=== PATIENT | female | born 1935 | race Caucasian/White ===

== ENCOUNTER → 2023-04-23 10:39 | Outpatient (REF) | payer MEDICARE, SELFPAY ==
[2023-04-23 11:54] LABS: % Basophils 0.6 % (0-2); % Eosinophils 3.6 % (0-6); % Immature Granulocytes 0.7 % (0-0.5); % Lymphocytes 43.7 % (20.5-51.1); % Monocytes 8.4 % (1.7-9.3); Absolute Eosinophils 0.3 10^3/uL (0-0.7); Absolute Immature Granulocytes 0.1 10^3/uL (0-0.05); Absolute Lymphocytes 3.2 10^3/uL (1.2-3.4); Absolute Monocytes 0.6 10^3/uL (0.1-0.6); Absolute Neutrophils 3.1 10^3/uL (1.4-6.5); Hematocrit 40.2 % (37.0-47.0); Hemoglobin 13.8 g/dL (12.0-16.0); Mean Corp Hgb Conc. 34.3 g/dL (33.0-37.0); Mean Corpuscular Hgb 32.9 pg (27.0-31.0); Mean Corpuscular Volume 95.7 fL (81.0-99.0); Mean Platelet Volume 8.5 fL (7.4-10.4); Nucleated Red Blood Cells % 0 %; Platelet Count 267 10^3/uL (130-400); Red Cell Dist. Width 15.2 % (11.5-14.5); White Blood Cell Count 7.3 10^3/uL (4.8-10.8)
[2023-04-23 12:30] LABS: ALT (SGPT) 20 U/L (0-35); AST (SGOT) 26 U/L (14-36); Albumin 4.6 g/dl (3.5-5.0); Alkaline Phosphatase 72 U/L (38-126); Blood Urea Nitrogen 17 mg/dl (7-17); Calcium 9.9 mg/dl (8.4-10.2); Carbon Dioxide 28 mmol/L (22-30); Chloride 104 mmol/L (98-107); Glucose 85 mg/dl (70-99); Potassium 3.8 mmol/L (3.5-5.1); Sodium 138 mmol/L (135-145); Total Bilirubin 0.8 mg/dl (0.2-1.3); Total Protein 6.9 g/dl (6.3-8.2); eGFR > 60.00
[2023-04-23 13:00] LABS: TSH Reflex To Free T4 6.65 uIU/ml (0.47-4.68)
[2023-04-23 13:48] LABS: Free T4 1.33 ng/dl (0.78-2.19)
== END ==
LOC: RAD 10:39
PROVIDERS: ATTENDING PHYSICIAN Internal Medicine
DX: M25.521 Pain in right elbow (principal); D75.1 Secondary polycythemia; E03.9 Hypothyroidism, unspecified; I10 Essential (primary) hypertension
CPT/HCPCS: 36415; 73080; 80053; 84439; 84443; 85025

== ENCOUNTER 2023-04-30 02:20 | Emergency (ER) | payer MEDICARE, SELFPAY ==
[2023-04-30 02:26] VITALS: BMI 29.2
[2023-04-30 02:28] VITALS: BP 131/66
--- NOTE | 2023-04-30 02:37 | ED.GENMED ---
History of Present Illness
<Jayda Garcia MD - Last Filed: 04/30/23 03:09>
General
Chief Complaint: Urinary Symptoms
Source: patient
Time Seen by Provider: 04/30/23 02:24
Travel History
Have you had any contact with someone who has COVID-19?: No
Do you have any symptoms of coronavirus? Fever > 100 degrees, chills, cough, shortness of breath, sore throat, loss of taste or smell, muscle aches, or headache?: No
History of Present Illness
History of Present Illness:
This patient is an 87-year-old female presents emergency department with urinary retention. She has been unable to urinate since early this afternoon. She denies other symptoms such as fever, chills, chest pain, dyspnea, upper abdominal pain,
flank pain, etc. Patient states that she had this in the past and it was relieved with a Garcia catheter. Patient does note fullness in the suprapubic area. She denies new or changed medications. She is having regular bowel movements.
Past History
<Jayda Garcia MD - Last Filed: 04/30/23 03:09>
Past History
ED Past Medical History: CHF, HTN, Hypothyroidism, Psychiatric and Other
Social History
Tobacco: Non-smoker
Alcohol: None
Personal: Single
Living: assisted living
Employment: Retired
Family History
Family History: Other
Phy Exam
<Jayda Garcia MD - Last Filed: 04/30/23 03:09>
Physical Exam
Physical Exam:
GENERAL: Alert , in no apparent distress
EYE: pupils equal and reactive
NECK: Supple, no significant adenopathy.
ENT: o/p clr, mmm.
CARDIAC: Regular rate and rhythm .
LUNGS: Clear breath sounds bilaterally, no acute respiratory distress, no wheezes/rales/rhonchi
ABDOMEN: Soft, without focal tenderness, suprapubic fullness noted, no r/g, no cvat
NEUROLOGICAL: Alert and oriented, no focal neuro deficits
SKIN: Warm and dry, skin intact.
MUSCULOSKELETAL: No edema, well perfused.
PSYCH: Normal and appropriate interaction.
Course
<Jayda Garcia MD - Last Filed: 04/30/23 03:09>
Orders/Labs/Results
Orders:
Orders
04/30/23 02:37
Garcia Placement- Treatment ONCE
Reason for insertion: Acute Retention
04/30/23 03:06
Urinalysis Reflex To Culture Urgent
Date Specimen was Collected: 04/30/23
Time Specimen was Collected: 03:06
04/30/23 03:15
Basic Metabolic Panel Urgent
Complete Blood Count/No Diff Urgent
Abnormal Lab Results
04/30/23
03:15
RBC 3.64 L 10^6/uL
(4.20-5.40)
Hct 34.3 L %
(37.0-47.0)
MCH 33.2 H pg
(27.0-31.0)
RDW 15.1 H %
(11.5-14.5)
Sodium 134 L mmol/L
(135-145)
BUN 18 H mg/dl
(7-17)
Creatinine 0.5 L mg/dL
(0.6-1.0)
Glucose 106 H mg/dl
(70-99)
04/30/23 03:15
04/30/23 03:15
Vital Signs
Initial and Last Documented VS:
Initial Vital Signs
Temp Pulse Resp BP Pulse Ox
98.0 F 75 16 131/66 94
04/30/23 02:28 04/30/23 02:28 04/30/23 02:28 04/30/23 02:28 04/30/23 02:28
Last Documented Vital Signs
Temp Pulse Resp BP Pulse Ox
98.0 F 75 16 126/73 100
04/30/23 02:28 04/30/23 02:28 04/30/23 02:28 04/30/23 05:00 04/30/23 05:00
<Rocael Jones, DO - Last Filed: 05/01/23 21:57>
Orders/Labs/Results
Orders:
Orders
04/30/23 02:37
Garcia Placement- Treatment ONCE
Reason for insertion: Acute Retention
04/30/23 03:06
Urinalysis Reflex To Culture Urgent
Date Specimen was Collected: 04/30/23
Time Specimen was Collected: 03:06
04/30/23 03:15
Basic Metabolic Panel Urgent
Complete Blood Count/No Diff Urgent
Abnormal Lab Results
04/30/23
03:15
RBC 3.64 L 10^6/uL
(4.20-5.40)
Hct 34.3 L %
(37.0-47.0)
MCH 33.2 H pg
(27.0-31.0)
RDW 15.1 H %
(11.5-14.5)
Sodium 134 L mmol/L
(135-145)
BUN 18 H mg/dl
(7-17)
Creatinine 0.5 L mg/dL
(0.6-1.0)
Glucose 106 H mg/dl
(70-99)
04/30/23 03:15
04/30/23 03:15
Vital Signs
Initial and Last Documented VS:
Initial Vital Signs
Temp Pulse Resp BP Pulse Ox
98.0 F 75 16 131/66 94
04/30/23 02:28 04/30/23 02:28 04/30/23 02:28 04/30/23 02:28 04/30/23 02:28
Last Documented Vital Signs
Temp Pulse Resp BP Pulse Ox
98.0 F 75 16 126/73 100
04/30/23 02:28 04/30/23 02:28 04/30/23 02:28 04/30/23 05:00 04/30/23 05:00
<Rocael Jones DO - Last Filed: 05/01/23 21:57>
*Critical Care Note
Total Time (30-74mins, 75-104mins- exclusive of procedures): Not Applicable
<Jayda Garcia MD - Last Filed: 04/30/23 03:09>
Update Note
Update Note:
Patient presents to the Emergency Department with ___inability to urinate
Number and Complexity of Problems Addressed at the Encounter
� Chronic conditions affecting care:
� Acute Exacerbation and/or Progression of Chronic Illness:
� Differential Diagnosis includes: But not limited to urinary retention, medication effects, constipation, UTI, etc.
Amount and/or Complexity of Data to be Reviewed and Analyzed
� I performed an independent evaluation of and my interpretation is:
EKG:
CT:
Xrays:
Laboratory Studies:
Other:
� Review of other/old records reveals: Discharge summary reviewed from August 2022 patient noted to have chronic nocturnal hypoxemia, heart failure, medication related mental status change
� Clinical information was obtained by an independent historian:
� Prescriptions/Medications Considered but not given:
� Further testing considered but not performed:
Risk of Complications and/or Morbidity or Mortality of Patient Management
� Social determinants of health affecting care:
� Discussion with other providers (PCP, Hospitalists, Consultants, etc):
� Escalation of care including admission/observation vs risk of discharge considered: Bedside US performed by me, bladder obviously very distended. Order for Garcia placed. I suspect antipsychotic zyprexa may be contributing to
pts retention.
On rectal exam, pt noted to have large amount of stool in vault. Nontender. Pt hasn't had a bm in several day, may also be contributing factor to acute retention. Garcia placed with clear/light yellow urine, sent for UA.
u/a nad labs pending, will give enema for constipation, anticipate d/c.
<Rocael Jones, DO - Last Filed: 05/01/23 21:57>
Update Note
Update Note:
Patient presents to the Emergency Department with ___inability to urinate
Number and Complexity of Problems Addressed at the Encounter
� Chronic conditions affecting care:
� Acute Exacerbation and/or Progression of Chronic Illness:
� Differential Diagnosis includes: But not limited to urinary retention, medication effects, constipation, UTI, etc.
Amount and/or Complexity of Data to be Reviewed and Analyzed
� I performed an independent evaluation of and my interpretation is:
EKG:
CT:
Xrays:
Laboratory Studies:
Other:
� Review of other/old records reveals: Discharge summary reviewed from August 2022 patient noted to have chronic nocturnal hypoxemia, heart failure, medication related mental status change
� Clinical information was obtained by an independent historian:
� Prescriptions/Medications Considered but not given:
� Further testing considered but not performed:
Risk of Complications and/or Morbidity or Mortality of Patient Management
� Social determinants of health affecting care:
� Discussion with other providers (PCP, Hospitalists, Consultants, etc):
� Escalation of care including admission/observation vs risk of discharge considered: Bedside US performed by me, bladder obviously very distended. Order for Garcia placed. I suspect antipsychotic zyprexa may be contributing to
pts retention.
On rectal exam, pt noted to have large amount of stool in vault. Nontender. Pt hasn't had a bm in several day, may also be contributing factor to acute retention. Garcia placed with clear/light yellow urine, sent for UA.
u/a nad labs pending, will give enema for constipation, anticipate d/c.
Patient had a large bowel movement and is feeling better wishes to be discharged home. Garcia catheter will remain in place.
ED Attending Note
<Jayda Garcia MD - Last Filed: 04/30/23 03:09>
-
Portions of this chart may have been created with voice recognition software.� Occasional wrong word or��sound alike� substitutions may have occurred due to the inherent limitations of voice recognition software.
Discharge Plan
Departure
Patient Disposition: Home (Routine Discharge)
Date of Disposition: 04/30/23
Time of Disposition: 06:28
Patient with high blood pressure during this ER visit?: Yes
Condition: Good
Discharge Problem:
Acute urinary retention, Constipation
Instructions: Constipation, Adult (DC), How to Care for Your Garcia Catheter, Urinary Retention (DC), BLOOD PRESSURE
Prescriptions:
No Action
hydroxyurea 500 MG capsule
500 mg PO MOTH@1200
divalproex 250 MG tablet,delayed release (DR/EC)
250 mg PO BID
levothyroxine 25 MCG tablet
25 mcg PO DAILY
olanzapine 10 mg Tablet
10 mg PO HS
hydrochlorothiazide 12.5 mg Tablet
12.5 mg PO DAILY
aspirin 81 mg Tablet,Delayed Release (Dr/Ec)
81 mg PO DAILY
acetaminophen [Tylenol Extra Strength] 500 mg Tablet
1,000 mg PO Q6HPRN PRN (Reason: mild pain)
hyoscyamine sulfate 0.125 mg Tablet, Sublingual
0.125 mg PO Q6HPRN PRN (Reason: gi spasms)
doxycycline hyclate 100 mg Capsule
100 mg PO Q12 Qty: 8 0RF
pantoprazole 40 mg Tablet,Delayed Release (Dr/Ec)
40 mg PO DAILY Qty: 7 0RF
cholecalciferol (vitamin D3) 50 mcg (2,000 unit) Tablet
1,000 mcg PO DAILY Qty: 0 0RF
guaifenesin 600 mg Tablet Extended Release 12hr
600 mg PO Q12 Qty: 10 0RF
Combivent Respimat 20-100 mcg/actuation Mist
1 puff inhalation R Q4HPRN PRN (Reason: WHEEZING) Qty: 4 0RF
dexamethasone 6 mg tablet
6 mg PO DAILY Qty: 4 0RF
amlodipine 5 mg Tablet
5 mg PO DAILY Qty: 30 0RF
Activity Restrictions/Additional Instructions:
IF YOU DEVELOP FEVER, BLEEDING, ABDOMINAL PAIN, FLANK PAIN, OR OTHER WORRISOME SIGNS, GO TO THE ER IMMEDIATELY!
Interventions
Interventions:
*Risk Screen - Suicide Last Done: 04/30/23 02:28
*General Assessment Last Done: 04/30/23 02:34
*Neglect/Abuse Screening Last Done: 04/30/23 02:28
ED- Fall Risk Assessment Last Done: 04/30/23 02:32
*ED COVID-19 Vaccine History Last Done: 04/30/23 02:27
*Nursing Disposition Last Done: 04/30/23 07:11
ED-Female Genitourinary Assessment Last Done: 04/30/23 02:32
Discharge Date and Time
Discharge Date/Time: 04/30/23 08:40
[2023-04-30 03:24] LABS: Urine Albumin Negative (Neg - Trace); Urine Bilirubin Negative (Negative); Urine Character Clear (Clear); Urine Color Yellow; Urine Glucose Negative (Negative); Urine Ketone Negative (Negative); Urine Leukocyte Negative (Negative); Urine Nitrite Negative (Negative); Urine Occult Blood Negative (Negative); Urine Urobilinogen Negative (Neg - 1+); Urine pH 6.5 (5.0-9.0)
[2023-04-30 03:24] LABS: Hematocrit 34.3 % (37.0-47.0); Hemoglobin 12.1 g/dL (12.0-16.0); Mean Corp Hgb Conc. 35.3 g/dL (33.0-37.0); Mean Corpuscular Hgb 33.2 pg (27.0-31.0); Mean Corpuscular Volume 94.2 fL (81.0-99.0); Mean Platelet Volume 8.2 fL (7.4-10.4); Platelet Count 222 10^3/uL (130-400); Red Blood Cell Count 3.64 10^6/uL (4.20-5.40); Red Cell Dist. Width 15.1 % (11.5-14.5); White Blood Cell Count 7.1 10^3/uL (4.8-10.8)
[2023-04-30 03:43] LABS: Blood Urea Nitrogen 18 mg/dl (7-17); Calcium 8.7 mg/dl (8.4-10.2); Carbon Dioxide 28 mmol/L (22-30); Chloride 100 mmol/L (98-107); Estimated Creatinine Clearance 52 ml/min; Glucose 106 mg/dl (70-99); Potassium 3.7 mmol/L (3.5-5.1); Sodium 134 mmol/L (135-145); eGFR > 60.00
[2023-04-30 04:41] VITALS: BP 135/72
[2023-04-30 05:00] VITALS: BP 126/73
== END 2023-04-30 08:40 | disposition home or self-care (01) ==
LOC: EMR 02:20
PROVIDERS: EMERGENCY PHYSICIAN Emergency Medicine; FAMILY PHYSICIAN Internal Medicine
DX: R33.9 Retention of urine, unspecified (principal); K59.00 Constipation, unspecified; I50.9 Heart failure, unspecified; I11.0 Hypertensive heart disease with heart failure
CPT/HCPCS: 99283; 51702; 80048; 81003; 85027

== ENCOUNTER → 2023-06-03 16:24 | Outpatient (REF) | payer MEDICARE, SELFPAY ==
[2023-06-03 16:49] LABS: % Basophils 0.5 % (0-2); % Eosinophils 3.4 % (0-6); % Immature Granulocytes 0.6 % (0-0.5); % Lymphocytes 40.6 % (20.5-51.1); % Monocytes 8.3 % (1.7-9.3); % Neutrophils 46.6 % (42.2-75.2); Absolute Eosinophils 0.2 10^3/uL (0-0.7); Absolute Lymphocytes 2.6 10^3/uL (1.2-3.4); Absolute Monocytes 0.5 10^3/uL (0.1-0.6); Hematocrit 37.8 % (37.0-47.0); Hemoglobin 13.4 g/dL (12.0-16.0); Mean Corp Hgb Conc. 35.4 g/dL (33.0-37.0); Mean Corpuscular Hgb 32.9 pg (27.0-31.0); Mean Corpuscular Volume 92.9 fL (81.0-99.0); Mean Platelet Volume 8.4 fL (7.4-10.4); Nucleated Red Blood Cells % 0 %; Platelet Count 257 10^3/uL (130-400); Red Blood Cell Count 4.07 10^6/uL (4.20-5.40); Red Cell Dist. Width 15.2 % (11.5-14.5); White Blood Cell Count 6.5 10^3/uL (4.8-10.8)
[2023-06-03 17:08] LABS: ALT (SGPT) 18 U/L (0-35); AST (SGOT) 26 U/L (14-36); Albumin 4.8 g/dl (3.5-5.0); Alkaline Phosphatase 78 U/L (38-126); Blood Urea Nitrogen 14 mg/dl (7-17); Calcium 10.4 mg/dl (8.4-10.2); Carbon Dioxide 27 mmol/L (22-30); Chloride 96 mmol/L (98-107); Glucose 91 mg/dl (70-99); Potassium 3.6 mmol/L (3.5-5.1); Sodium 136 mmol/L (135-145); Total Bilirubin 0.8 mg/dl (0.2-1.3); eGFR > 60.00
[2023-06-03 17:37] LABS: Urine Albumin Negative (Neg - Trace); Urine Bilirubin Negative (Negative); Urine Character Clear (Clear); Urine Color Yellow; Urine Glucose Negative (Negative); Urine Ketone Trace (Negative); Urine Leukocyte Trace (Negative); Urine Nitrite Negative (Negative); Urine Occult Blood Trace (Negative); Urine Urobilinogen Negative (Neg - 1+)
[2023-06-03 18:01] LABS: Urine Bacteria Few (Negative); Urine Red Blood Cell 0-2 /HPF (0-2); Urine White Cell 0-2 /HPF (0-5)
== END ==
LOC: REG 16:24
PROVIDERS: ATTENDING PHYSICIAN Internal Medicine
DX: F20.0 Paranoid schizophrenia (principal); I10 Essential (primary) hypertension
CPT/HCPCS: 36415; 80053; 81003; 81015; 85025

== ENCOUNTER → 2024-03-30 11:27 | Outpatient (REF) | payer MEDICARE, SELFPAY ==
[2024-03-30 12:11] LABS: % Basophils 0.6 % (0-2); % Eosinophils 5.3 % (0-6); % Immature Granulocytes 0.7 % (0-0.5); % Lymphocytes 48.4 % (20.5-51.1); % Monocytes 7.9 % (1.7-9.3); % Neutrophils 37.1 % (42.2-75.2); Absolute Eosinophils 0.4 10^3/uL (0-0.7); Absolute Immature Granulocytes 0.1 10^3/uL (0-0.05); Absolute Lymphocytes 3.4 10^3/uL (1.2-3.4); Absolute Monocytes 0.6 10^3/uL (0.1-0.6); Absolute Neutrophils 2.6 10^3/uL (1.4-6.5); Hematocrit 38.2 % (37.0-47.0); Hemoglobin 13.4 g/dL (12.0-16.0); Mean Corp Hgb Conc. 35.1 g/dL (33.0-37.0); Mean Corpuscular Hgb 34.2 pg (27.0-31.0); Mean Corpuscular Volume 97.4 fL (81.0-99.0); Mean Platelet Volume 8.6 fL (7.4-10.4); Nucleated Red Blood Cells % 0 %; Platelet Count 275 10^3/uL (130-400); Red Blood Cell Count 3.92 10^6/uL (4.20-5.40); Red Cell Dist. Width 14.8 % (11.5-14.5); White Blood Cell Count 6.9 10^3/uL (4.8-10.8)
[2024-03-30 12:26] LABS: ALT (SGPT) 15 U/L (0-35); AST (SGOT) 17 U/L (14-36); Albumin 4.7 g/dl (3.5-5.0); Alkaline Phosphatase 74 U/L (38-126); Blood Urea Nitrogen 13 mg/dl (7-17); Calcium 9.3 mg/dl (8.4-10.2); Carbon Dioxide 24 mmol/L (22-30); Chloride 103 mmol/L (98-107); Glucose 83 mg/dl (70-99); HDL Cholesterol 40 mg/dl; LDL Cholesterol, Calculated 76 mg/dl; Potassium 3.6 mmol/L (3.5-5.1); Sodium 139 mmol/L (135-145); Total Bilirubin 0.6 mg/dl (0.2-1.3); Total Cholesterol 147 mg/dl (50-199); Total Protein 6.4 g/dl (6.3-8.2); Triglyceride 156 mg/dl (10-149); Very Low Density Lipoprotein 31 mg/dl (0-30); eGFR > 60.00
[2024-03-30 15:59] LABS: Vitamin B12 323 pg/ml (239-931)
== END ==
LOC: OLABWIL 11:27
PROVIDERS: ATTENDING PHYSICIAN Internal Medicine
DX: R41.3 Other amnesia (principal); I10 Essential (primary) hypertension; E78.5 Hyperlipidemia, unspecified; E03.9 Hypothyroidism, unspecified
CPT/HCPCS: 36415; 80053; 80061; 82607; 85025

== ENCOUNTER → 2024-04-11 09:40 | Outpatient (REF) | payer MEDICARE, SELFPAY ==
[2024-04-11 11:38] LABS: Free T4 1.05 ng/dl (0.78-2.19)
[2024-04-11 11:52] LABS: TSH 6.99 uIU/ml (0.47-4.68)
== END ==
LOC: OLABWIL 09:40
PROVIDERS: ATTENDING PHYSICIAN Internal Medicine
DX: E03.9 Hypothyroidism, unspecified (principal)
CPT/HCPCS: 36415; 84439; 84443

== ENCOUNTER → 2024-07-20 13:51 | Outpatient (REF) | payer MEDICARE, SELFPAY ==
[2024-07-20 15:21] LABS: Depakane 52.3 ug/ml (50.0-120.0)
== END ==
LOC: REG 13:51
PROVIDERS: ATTENDING PHYSICIAN Psychiatry & Neurology Psychiatry; FAMILY PHYSICIAN Internal Medicine
DX: F25.1 Schizoaffective disorder, depressive type (principal)
CPT/HCPCS: 36415; 80164

== ENCOUNTER → 2024-11-02 09:49 | Outpatient (REF) | payer MEDICARE, SELFPAY ==
[2024-11-02 11:36] LABS: Depakane 21.3 ug/ml (50.0-120.0)
== END ==
LOC: RAD 09:49
PROVIDERS: ATTENDING PHYSICIAN Psychiatry & Neurology Psychiatry; FAMILY PHYSICIAN Internal Medicine
DX: M25.521 Pain in right elbow (principal); F25.1 Schizoaffective disorder, depressive type
CPT/HCPCS: 36415; 73080; 80164

== ENCOUNTER → 2024-11-07 10:42 | Outpatient (REF) | payer MEDICARE, SELFPAY ==
[2024-11-07 11:12] LABS: Hematocrit 39.2 % (37.0-47.0); Hemoglobin 13.5 g/dL (12.0-16.0); Mean Corp Hgb Conc. 34.4 g/dL (33.0-37.0); Mean Corpuscular Volume 97.8 fL (81.0-99.0); Nucleated Red Blood Cells % 0 %; Platelet Count 250 10^3/uL (130-400); Red Cell Dist. Width 15.0 % (11.5-14.5)
[2024-11-07 11:49] LABS: TSH 8.27 uIU/ml (0.47-4.68)
== END ==
LOC: OLABWIL 10:42
PROVIDERS: ATTENDING PHYSICIAN Internal Medicine
DX: I10 Essential (primary) hypertension (principal); D75.839 Thrombocytosis, unspecified; E03.9 Hypothyroidism, unspecified
CPT/HCPCS: 36415; 84439; 84443; 85025